=== PATIENT | male | born 1955 | race African-American/Black ===

== ENCOUNTER 2017-02-04 19:54 | Emergency (ER) | payer SELFPAY ==
[~2017-02-04] VITALS: Ht 177.8 cm; Wt 104.0 kg
[2017-02-04] MEDS ORDERED: IBUPROFEN 800MG TABLET PO ONE (21:30)
[2017-02-04] MEDS ORDERED: LORAZEPAM 1MG TABLET PO ONE (21:30)
[2017-02-04 22:25] VITALS: BP 125/73
== END 2017-02-05 00:07 | disposition home or self-care (01) ==
LOC: ER 21:06
DX: S80.11XA Contusion of right lower leg, initial encounter (principal); V29.9XXA Motorcycle rider (driver) (passenger) injured in unspecified traffic accident, initial encounter; Y93.89 Activity, other specified; Y92.89 Other specified places as the place of occurrence of the external cause; Y99.8 Other external cause status
CPT/HCPCS: 73552; 73562; 99284; Z7610

== ENCOUNTER 2022-04-26 05:14 | Emergency (ER) | payer MEDICARE, OTHER ==
[~2022-04-26] VITALS: Ht 180.3 cm; Wt 97.0 kg
[2022-04-26 05:24] VITALS: BP 148/96
[2022-04-26] MEDS ORDERED: ACETAMINOPHEN WITH CODEINE 300/30MG TABLET PO ONE (06:00)
[2022-04-26] MEDS ORDERED: LIDOCAINE HCL/EPINEPHRINE 1%-EPI 1:100,000 20 ML VIAL INFIL ONE (06:00)
[2022-04-26] MEDS ORDERED: CEPH500T PO (06:23)
[2022-04-26] MEDS ORDERED: SULF1TAB48 PO (06:23)
== END 2022-04-26 07:17 | disposition home or self-care (01) ==
LOC: ER 05:14
DX: S81.811A Laceration without foreign body, right lower leg, initial encounter (principal); S51.811A Laceration without foreign body of right forearm, initial encounter; W54.0XXA Bitten by dog, initial encounter; Y93.89 Activity, other specified; Y92.89 Other specified places as the place of occurrence of the external cause; Y99.8 Other external cause status
CPT/HCPCS: 12002; 99284; J3490; 99283

== ENCOUNTER 2022-04-29 04:45 | Emergency (ER) | payer MEDICARE, MEDICAID ==
[~2022-04-29] VITALS: Ht 180.3 cm; Wt 97.0 kg
[~2022-04-29 04:45] MED LIST: CEPH500T PO; SULF1TAB48 PO
[2022-04-29 07:25] VITALS: BP 123/80
== END 2022-04-29 07:30 | disposition home or self-care (01) ==
LOC: ER 04:45
DX: Z48.00 Encounter for change or removal of nonsurgical wound dressing (principal)
CPT/HCPCS: 99281

== ENCOUNTER 2022-05-06 04:47 | Inpatient (IN) | payer MEDICARE, MEDICAID ==
[~2022-05-06] VITALS: Ht 180.3 cm; Wt 102.5 kg
[2022-05-06 06:01] LABS: BASOPHILS % 1.3 % (0.0-2.0); EOSINOPHILS % 2.7 % (0.0-5.0); HEMATOCRIT. 38.5 % (42.0-52.0); HEMOGLOBIN. 12.7 g/dL (14.0-18.0); LYMPHOCYTES % 44.3 % (20.0-50.0); MEAN CORPUSCULAR VOLUME 85.1 fL (80.0-94.0); MEAN PLATELET VOLUME 8.6 fl (7.4-10.4); MONOCYTES % 9.2 % (2.0-8.0); NEUTROPHILS % 42.5 % (40.0-76.0); PLATELET 183 x1000/uL (130-400); RED BLOOD CELL COUNT 4.53 mill/uL (4.7-6.1); RED CELL DISTRIBUTION WIDTH 14.1 % (11.6-14.6)
[2022-05-06 06:05] LABS: CHLORIDE 104 mEq/L (98-107)
[2022-05-06] MEDS ORDERED: CLINDAMYCIN 600 MG in DEXTROSE 5% WATER 50 ML IV ONE (08:15)
[2022-05-06] MEDS ORDERED: CLINDAMYCIN 600 MG PREMIX 50 ML IV NR (08:30)
[2022-05-06 12:00] VITALS: BP 113/71
[2022-05-06] MEDS ORDERED: CLONIDINE 0.1MG TABLET PO PRN (15:00)
[2022-05-06] MEDS ORDERED: ONDANSETRON HCL 4MG/2ML INJ IV PRN (15:00)
[2022-05-06] MEDS ORDERED: VANCOMYCIN 1500MG in DEXTROSE 5% WATER 250ML IV NR (16:00)
[2022-05-06 16:04] VITALS: BP 111/68
[2022-05-06] MEDS: AMPICILLIN SOD/SULBACTAM NA 3 G in SODIUM CHLORIDE 0.9% 100 ML IV SCH ×2 (16:25→22:50)
[2022-05-06] MEDS: SODIUM CHLORIDE 0.9% 1,000 ML IV SCH (16:25)
[2022-05-06] MEDS ORDERED: PNEUMOCOCCAL 23-VAL P-SAC VAC 0.5 ML IM ONE (17:00)
[2022-05-06 20:00] VITALS: BP 102/63
[2022-05-07] VITALS: BP 103/71
[2022-05-07 04:00] VITALS: BP 116/76
[2022-05-07] MEDS ORDERED: VANCOMYCIN 750MG PREMIX 150 ML IV SCH (04:00)
[2022-05-07] MEDS: SODIUM CHLORIDE 0.9% 1,000 ML IV SCH ×2 (04:22→17:22)
[2022-05-07] MEDS: AMPICILLIN SOD/SULBACTAM NA 3 G in SODIUM CHLORIDE 0.9% 100 ML IV SCH ×3 (05:40→17:22)
[2022-05-07 06:16] LABS: BASOPHILS % 1.2 % (0.0-2.0); EOSINOPHILS % 2.4 % (0.0-5.0); HEMATOCRIT. 39.3 % (42.0-52.0); HEMOGLOBIN. 13.3 g/dL (14.0-18.0); LYMPHOCYTES % 39.5 % (20.0-50.0); MEAN CORPUSCULAR HEMOGLOBIN 28.7 pg (28.0-32.0); MEAN CORPUSCULAR VOLUME 84.4 fL (80.0-94.0); MEAN PLATELET VOLUME 8.9 fl (7.4-10.4); MONOCYTES % 9.1 % (2.0-8.0); NEUTROPHILS % 47.8 % (40.0-76.0); PLATELET 179 x1000/uL (130-400); RED BLOOD CELL COUNT 4.65 mill/uL (4.7-6.1); RED CELL DISTRIBUTION WIDTH 13.9 % (11.6-14.6)
[2022-05-07 06:19] LABS: CHLORIDE 106 mEq/L (98-107)
[2022-05-07 08:00] VITALS: BP 102/70
[2022-05-07 12:00] VITALS: BP 110/69
[2022-05-07 16:00] VITALS: BP 106/69
[2022-05-07] MEDS: VANCOMYCIN 1G PREMIX 200 ML IV SCH (17:22)
[2022-05-07] MEDS: ACETAMINOPHEN 325MG TABLET PO PRN ×2 (18:16→22:42)
[2022-05-07 20:00] VITALS: BP 106/60
[2022-05-08] VITALS: BP 122/71
[2022-05-08] MEDS: AMPICILLIN SOD/SULBACTAM NA 3 G in SODIUM CHLORIDE 0.9% 100 ML IV SCH ×4 (00:25→18:47)
[2022-05-08] MEDS: ACETAMINOPHEN 325MG TABLET PO PRN ×3 (02:42→18:47)
[2022-05-08 04:00] VITALS: BP 145/69
[2022-05-08 06:15] LABS: CHLORIDE 106 mEq/L (98-107)
[2022-05-08] MEDS: SODIUM CHLORIDE 0.9% 1,000 ML IV SCH ×2 (07:00→21:01)
[2022-05-08 08:00] VITALS: BP 118/78
[2022-05-08 12:00] VITALS: BP 129/62
[2022-05-08] MEDS: VANCOMYCIN 1G PREMIX 200 ML IV SCH ×2 (12:57→14:40)
[2022-05-08 16:00] VITALS: BP 114/74
[2022-05-08 20:00] VITALS: BP 143/92
[2022-05-09] VITALS (7 sets, daily range): BP systolic 117–127; BP diastolic 77–90
[2022-05-09] MEDS: AMPICILLIN SOD/SULBACTAM NA 3 G in SODIUM CHLORIDE 0.9% 100 ML IV SCH ×4 (00:41→16:40)
[2022-05-09] MEDS: ACETAMINOPHEN 325MG TABLET PO PRN ×2 (00:42→05:47)
[2022-05-09] MEDS: VANCOMYCIN 1G PREMIX 200 ML IV SCH ×2 (02:05→14:18)
[2022-05-09] MEDS ORDERED: LIDOCAINE 5% PATCH TOP SCH (09:00)
[2022-05-09] MEDS: SODIUM CHLORIDE 0.9% 1,000 ML IV SCH (09:21)
== END 2022-05-09 20:15 | disposition home or self-care (01) | DRG 603 ==
LOC: ER 04:55 → 6EST 09:28 → ENRESERV 10:08
PROVIDERS: ADMIT Internal Medicine; ATTEND Internal Medicine
DX: L03.115 Cellulitis of right lower limb (principal); N17.9 Acute kidney failure, unspecified; S81.851D Open bite, right lower leg, subsequent encounter; W54.0XXD Bitten by dog, subsequent encounter; N28.9 Disorder of kidney and ureter, unspecified; Z90.81 Acquired absence of spleen
CPT/HCPCS: 36415; 71045; 73700; 80048; 80053; 80202; 85025; 85651; 86140; 93005; 93971; 99285; J0295; J3370; J3490; J7030; J7050; J7060